=== PATIENT | female | born 1970 | race African-American/Black ===

== ENCOUNTER 2018-08-24 20:18 | Emergency (ER) | payer BC, OTHER ==
[2018-08-24 21:36] LABS: Absolute Lymphocytes (CBC) 2.5 K/uL (0.7-4.9); Absolute Monocytes 0.4 K/uL (0.1-1.3); Absolute Neutrophil 6.9 K/uL (1.8-8.0); Basophils % 0.7 % (0-1.3); Eosinophils % 2.3 % (0-4.4); Hematocrit 28.4 % (36.0-45.0); Lymphocytes % 25.1 % (15.3-44.8); MPV 8.8 fL (7.6-11.3); Monocytes % 4.3 % (3.3-12.3); RBC Red Blood Cell Count 4.11 M/uL (3.86-4.86)
[2018-08-24 21:39] LABS: Protime INR 1.15
[2018-08-24 21:54] LABS: ALT/SGPT 10 U/L (12-78); AST/SGOT 10 U/L (15-37); Albumin 2.8 g/dL (3.4-5.0); Alkaline Phosphatase 54 U/L (45-117); BUN Blood Urea Nitrogen 14 mg/dL (7-18); Bicarbonate 26 mmol/L (21-32); Bilirubin Direct < 0.1 mg/dL (0-0.2); Bilirubin Total 0.2 mg/dL (0.2-1.0); Glucose Level 109 mg/dL (74-106); NT PRO-BNP 40 pg/mL (<125); Potassium 3.7 mmol/L (3.5-5.1); Protein, Total 7.5 g/dL (6.4-8.2); Sodium Level 142 mmol/L (136-145); Troponin (Emerg Dept Use Only) < 0.02 ng/mL (0.0-0.045)
[2018-08-24] MEDS ORDERED: NA CHLORIDE 0.9% 1,000 ML ONE (21:54)
--- NOTE | 2018-08-24 22:49 | ER ---
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 This morning I woke up feeling weird in my head and woozy. Also having random sharp pains in my head. Transition of care: patient was not received from another setting of care. Onset of symptoms was August 24, 2018. Risk Assessment: Do you want to hurt yourself or someone else? Patient reports no desire to harm self or others. Initial Sepsis Screen: Does the patient meet any 2 criteria? No. Patient's initial sepsis screen is negative. Does the patient have a suspected source of infection? No. Patient's initial sepsis screen is negative. Care prior to arrival: None. 20:36 Method Of Arrival: Ambulatory tl2 20:36 Acuity: JAYME 3 tl2 Triage Assessment: 20:38 General: Appears in no apparent distress. uncomfortable, Behavior is calm, cooperative, tl2 appropriate for age. Pain: Complains of pain in left side of head Is intermittent. Neuro: Level of Consciousness is awake, alert, obeys commands, Oriented to person, place, time, situation. Cardiovascular: Denies chest pain. Respiratory: Airway is patent Respiratory effort is even, unlabored, Respiratory pattern is regular, symmetrical, Denies shortness of breath. GI: No signs and/or symptoms were reported involving the gastrointestinal system. : No signs and/or symptoms were reported regarding the genitourinary system. Derm: Skin is normal. 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 - Social history:: Smoking status: Patient/guardian denies using tobacco. - Ebola Screening: : No symptoms or risks identified at this time. - Family history:: not pertinent. Screenin:41 Abuse screen: Denies threats or abuse. Nutritional screening: No deficits noted. tl2 Tuberculosis screening: No symptoms or risk factors identified. Fall Risk None identified. Assessment: 20:38 General: see triage assessment. tl2 21:44 Reassessment: Patient appears in no apparent distress at this time. No changes from tl2 previously documented assessment. Patient and/or family updated on plan of care and expected duration. Pain level reassessed. Patient is alert, oriented x 3, equal unlabored respirations, skin warm/dry/pink. 22:44 Reassessment: Patient appears in no apparent distress at this time. Patient and/or tl2 family updated on plan of care and expected duration. Pain level reassessed. Patient is alert, oriented x 3, equal unlabored respirations, skin warm/dry/pink. 23:04 Reassessment: Patient appears in no apparent distress at this time. Patient and/or tl2 family updated on plan of care and expected duration. Pain level reassessed. Patient is alert, oriented x 3, equal unlabored respirations, skin warm/dry/pink. pt verbalized understanding of discharge instructions, need for follow up and prescription usage. Vital Signs: 20:38 BP 144 / 78; Pulse 102; Resp 18; Temp 98.3(O); Pulse Ox 100% on R/A; Weight 113.4 kg; tl2 Height 5 ft. 8 in. (172.72 cm); Pain 5/10; 21:44 BP 118 / 80; Pulse 83; Resp 18; Pulse Ox 100% on R/A; tl2 23:04 BP 129 / 90; Pulse 87; Resp 18; Pulse Ox 100% on R/A; tl2 20:38 Body Mass Index 38.01 (113.40 kg, 172.72 cm) tl2 ED Course: 20:21 Patient arrived in ED. am2 20:22 Raymon Tena MD is Private Physician. am2 20:35 Zoe Ayala RN is Primary Nurse. tl2 20:37 Triage completed. tl2 20:38 Arm band placed on right wrist. tl2 20:41 Patient has correct armband on for positive identification. Bed in low position. Call tl2 light in reach. Side rails up X 1. Adult w/ patient. 20:43 Deandre Rojas MD is Attending Physician. [facility] 21:18 Inserted saline lock: 20 gauge in right antecubital area, using aseptic technique. tl2 Blood collected. 21:44 XRAY Chest (1 view) In Process Unspecified. EDMS 22:15 CT completed. Patient tolerated procedure well. Patient moved to CT. Patient moved back ma from CT. 22:24 CT Head Brain wo Cont In Process Unspecified. EDMS 22:48 Raymon Tena MD is Referral Physician. [facility] 23:04 No provider procedures requiring assistance completed. IV discontinued, intact, tl2 bleeding controlled, No redness/swelling at site. Pressure dressing applied. Administered Medications: 21:44 Drug: NS 0.9% 500 ml Route: IV; Rate: bolus; Site: right antecubital; tl2 23:06 Follow up: IV Status: Completed infusion; IV Intake: 500ml tl2 Intake: 23:06 IV: 500ml; Total: 500ml. tl2 Outcome: 22:49 Discharge ordered by . [facility] 23:04 Discharged to home ambulatory, with family. tl2 23:04 Condition: stable 23:04 Discharge instructions given to patient, family, Instructed on discharge instructions, follow up and referral plans. medication usage, Demonstrated understanding of instructions, follow-up care, medications, Prescriptions given X 2. 23:14 Patient left the ED. tl2 Signatures: Dispatcher [employer] EDAZ Deandre Rojas MD MD cha Knox, Taylor, RN RN tl2 Darren Starks Amanda am2
--- NOTE | 2018-08-24 22:50 | EDPHYS ---
Physician Documentation [facility] Name: Ying Mendenhall Age: 48 yrs Sex: Female : 1970 Arrival Date: 08/24/2018 Time: 20:21 Bed 18 Private MD: Raymon Tena ED Physician Deandre Rojas HPI: 08/24 21:29 This 48 yrs old Black Female presents to ER via Ambulatory with complaints of Doesn't taylor Feel Right, Sharp body pains. 21:29 The patient complains of pain to the top of head, forehead, left frontal area, left taylor side of forehead and left temporal area. The patient describes the headache as aching. 21:30 Onset: The symptoms/episode began/occurred 2 day(s) ago. weak, no cp, no sob. taylor Associated signs and symptoms: The patient has no apparent associated signs or symptoms. Severity of symptoms: At its worst the pain was mild, moderate, in the emergency department the pain is unchanged. Headache History: The patient has had previous headaches and this one is similar to previous episodes. Onset: The symptoms/episode began/occurred 2 day(s) ago. The symptoms are alleviated by nothing. the symptoms are aggravated by nothing. 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 - Social history:: Smoking status: Patient/guardian denies using tobacco. - Ebola Screening: : No symptoms or risks identified at this time. - Family history:: not pertinent. ROS: 21:30 Constitutional: Negative for fever, chills, and weight loss, Eyes: Negative for injury, taylor pain, redness, and discharge, ENT: Negative for injury, pain, and discharge, Neck: Negative for injury, pain, and swelling, Cardiovascular: Negative for chest pain, palpitations, and edema, Respiratory: Negative for shortness of breath, cough, wheezing, and pleuritic chest pain, Abdomen/GI: Negative for abdominal pain, nausea, vomiting, diarrhea, and constipation, Back: Negative for injury and pain, : Negative for injury, bleeding, discharge, and swelling, MS/Extremity: Negative for injury and deformity, Skin: Negative for injury, rash, and discoloration, Psych: Negative for depression, anxiety, suicide ideation, homicidal ideation, and hallucinations, Allergy/Immunology: Negative for hives, rash, and allergies, Endocrine: Negative for neck swelling, polydipsia, polyuria, polyphagia, and marked weight changes, Hematologic/Lymphatic: Negative for swollen nodes, abnormal bleeding, and unusual bruising. 21:30 Neuro: Positive for headache, weakness. Exam: 21:30 Constitutional: This is a well developed, well nourished patient who is awake, alert, taylor and in no acute distress. Head/Face: Normocephalic, atraumatic. Eyes: Pupils equal round and reactive to light, extra-ocular motions intact. Lids and lashes normal. Conjunctiva and sclera are non-icteric and not injected. Cornea within normal limits. Periorbital areas with no swelling, redness, or edema. ENT: Nares patent. No nasal discharge, no septal abnormalities noted. Tympanic membranes are normal and external auditory canals are clear. Oropharynx with no redness, swelling, or masses, exudates, or evidence of obstruction, uvula midline. Mucous membranes moist. Neck: Trachea midline, no thyromegaly or masses palpated, and no cervical lymphadenopathy. Supple, full range of motion without nuchal rigidity, or vertebral point tenderness. No Meningismus. Chest/axilla: Normal chest wall appearance and motion. Nontender with no deformity. No lesions are appreciated. Cardiovascular: Regular rate and rhythm with a normal S1 and S2. No gallops, murmurs, or rubs. Normal PMI, no JVD. No pulse deficits. Respiratory: Lungs have equal breath sounds bilaterally, clear to auscultation and percussion. No rales, rhonchi or wheezes noted. No increased work of breathing, no retractions or nasal flaring. Abdomen/GI: Soft, non-tender, with normal bowel sounds. No distension or tympany. No guarding or rebound. No evidence of tenderness throughout. Back: No spinal tenderness. No costovertebral tenderness. Full range of motion. Skin: Warm, dry with normal turgor. Normal color with no rashes, no lesions, and no evidence of cellulitis. MS/ Extremity: Pulses equal, no cyanosis. Neurovascular intact. Full, normal range of motion. Neuro: Awake and alert, GCS 15, oriented to person, place, time, and situation. Cranial nerves II-XII grossly intact. Motor strength 5/5 in all extremities. Sensory grossly intact. Cerebellar exam normal. Normal gait. Psych: Awake, alert, with orientation to person, place and time. Behavior, mood, and affect are within normal limits. 22:52 Neck: ROM/movement: is normal, no acute changes, Meningeal signs: are not present, [facility] Kernig's sign is negative, Brudzinski's sign is negative. Vital Signs: 20:38 BP 144 / 78; Pulse 102; Resp 18; Temp 98.3(O); Pulse Ox 100% on R/A; Weight 113.4 kg; tl2 Height 5 ft. 8 in. (172.72 cm); Pain 5/10; 21:44 BP 118 / 80; Pulse 83; Resp 18; Pulse Ox 100% on R/A; tl2 23:04 BP 129 / 90; Pulse 87; Resp 18; Pulse Ox 100% on R/A; tl2 20:38 Body Mass Index 38.01 (113.40 kg, 172.72 cm) 2 MDM: 20:43 Patient medically screened. [facility] 21:31 Data reviewed: vital signs, nurses notes, lab test result(s), EKG, radiologic studies, [facility] CT scan, plain films. 08/24 21:22 Order name: Basic Metabolic Panel [place] 08/24 21:22 Order name: CBC with Diff [place] 08/24 21: Order name: LFT's; Complete Time: 22:47 [place] 08/24 21: Order name: Magnesium; Complete Time: 22:47 [place] 08/24 21:22 Order name: NT PRO-BNP; Complete Time: 22:47 [place] 08/24 21: Order name: PT-INR; Complete Time: 22:47 [place] 08/24 21:22 Order name: Troponin (emerg Dept Use Only); Complete Time: 22:47 [place] 08/24 21: Order name: XRAY Chest (1 view) tl2 08/24 21:22 Order name: EKG; Complete Time: 21:23 tl2 08/24 21:22 Order name: Cardiac monitoring; Complete Time: 21:38 tl2 08/24 21:23 Order name: Basic Metabolic Panel; Complete Time: 22:47 [facility] 08/24 21:27 Order name: CT Head Brain wo Cont [facility] 08/24 21:40 Order name: CBC Smear Scan [facility] 08/24 21:22 Order name: EKG - Nurse/Tech; Complete Time: 21:38 tl2 08/24 21:22 Order name: IV Saline Lock; Complete Time: 21:38 tl2 08/24 21:22 Order name: Labs collected and sent; Complete Time: 21:38 tl2 08/24 21:22 Order name: O2 Per Protocol; Complete Time: :38 tl2 08/24 21:22 Order name: O2 Sat Monitoring; Complete Time: :38 tl2 Administered Medications: 21:44 Drug: NS 0.9% 500 ml Route: IV; Rate: bolus; Site: right antecubital; tl2 23:06 Follow up: IV Status: Completed infusion; IV Intake: 500ml tl2 Disposition: 08/24/18 22:49 Discharged to Home. 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 - Condition is Stable. - Discharge Instructions: Iron Deficiency Anemia, Adult, Anemia, Nonspecific, Iron-Rich Diet, General Headache Without Cause, Weakness, Fatigue, Weakness, Curo-aa-Folf, Aspirin and Your Heart, General Headache Without Cause, Bcnk-od-Uqpn, Iron Deficiency Anemia, Adult, Xvml-bl-[id number]. - Prescriptions for Ferrous Sulfate 325 mg (65 mg Iron) Oral Tablet - take 1 tablet by ORAL route every 8 hours; 90 tablet. Pepcid 20 mg Oral Tablet - take 1 tablet by ORAL route every 12 hours for 10 days; 20 tablet. - Medication Reconciliation Form, Thank You Letter, Antibiotic Education, Prescription Opioid Use form. - Follow up: Raymon Tena; When: Tomorrow; Reason: Recheck today's complaints, Continuance of care, Re-evaluation by your physician. - Problem is new. - Symptoms have improved. Signatures: Dispatcher [employer] EDUT Deandre Rojas MD MD cha Knox, Taylor, RN RN tl2 Corrections: (The following items were deleted from the chart) 22:51 22:49 08/24/2018 22:49 Discharged to Home. Impression: Weakness; Malaise and fatigue; taylor Obesity, unspecified; Headache; Anemia, unspecified. Condition is Stable. Discharge Instructions: General Headache Without Cause, Weakness, Fatigue, Weakness, Qupt-eb-Hbwz, Aspirin and Your Heart, General Headache Without Cause, Gdpu-cp-Azxf. Forms are Medication Reconciliation Form, Thank You Letter, Antibiotic Education, Prescription Opioid Use. Follow up: Raymon Tena; When: Tomorrow; Reason: Recheck today's complaints, Continuance of care, Re-evaluation by your physician. Problem is new. Symptoms have improved. [facility] 23:06 21:27 Urine Dipstick-Ancillary ordered. taylor tl2 23:14 22:51 08/24/2018 22:49 Discharged to Home. 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 Condition is Stable. Discharge Instructions: General Headache Without Cause, Weakness, Fatigue, Weakness, Pzas-er-Pwbz, Aspirin and Your Heart, General Headache Without Cause, Ugpw-mu-Hzks, Iron Deficiency Anemia, Adult, Anemia, Nonspecific, Iron-Rich Diet, Iron Deficiency Anemia, Adult, Xqjr-hf-Qbkj. Forms are Medication Reconciliation Form, Thank You Letter, Antibiotic Education, Prescription Opioid Use. Follow up: Raymon Tena; When: Tomorrow; Reason: Recheck today's complaints, Continuance of care, Re-evaluation by your physician. Problem is new. Symptoms have improved. taylor
[2018-08-24 23:38] LABS: Blood Morphology Comment NOTED (NOT SEEN); Hypochromasia 1+; Platelet Estimate ADEQ; Urine White Blood Cell Casts OK
--- NOTE | 2018-08-25 08:02 | RAD REPORT ---
EXAM DESCRIPTION: RAD - Chest Single View - 08/24/2018 9:44 pm CLINICAL HISTORY: Shortness of breath COMPARISON: July 2016 TECHNIQUE: AP portable chest image was obtained 2141 hours . FINDINGS: Lungs are clear. Heart and vasculature are normal. No measurable pleural effusion and no p neumothorax. No acute bony abnormality seen. No acute aortic findings suspected. IMPRESSION: No acute cardiopulmonary process. No significant interval change.
--- NOTE | 2018-08-25 09:36 | RAD REPORT ---
EXAM DESCRIPTION: CT - Head Brain Wo Cont - 08/24/2018 10:46 pm CLINICAL HISTORY: 48 years Female DIZZINESS COMPARISON: None TECHNIQUE: Images were obtained in axial, sagittal, and coronal planes. This exam was performed according to our departmental dose-optimization program which includes use of Automated Exposure Control, adjustment of the mA and/or kV according to patient size and/or use of i terative reconstruction technique. FINDINGS: Ventricular system appears normal. No abnormal areas of increased increased attenuation are seen involving the brain parenchyma. No extr a-axial fluid collections noted. Left basal ganglionic calcifications likely physiologic in nature. O ld lacunar infarcts right basal ganglion region. No evidence for skull fracture. Symmetric aeration mastoid air cells bilaterally. Unremarkable parana courtney sinuses. Limited visualization craniovertebral junction on lateral images related to beam hardeni ng artifact. IMPRESSION: No acute intracranial abnormality. No evidence for hemorrhage, mass lesion, or large acu te infarction. Old lacunar infarct right basal ganglion region. Electronically signed by: Marta Alaniz MD 08/24/2018 10:33 PM CDT Due to temporary technical issues with the PACS/Fluency reporting system, reports are being signed by the in house radiologist as a courtesy to ensure prompt reporting. The interpreting radiologist is f ully responsible for the content of the report.
--- NOTE | 2018-08-25 10:29 | EKG ---
Test Date: 2018-08-24 Test Time: 21:36:10 Child Development Instructor: HIRO MEASUREMENT RESULTS: Intervals: Rate: 87 DE: 146 QRSD: 90 QT: 380 QTc: 457 [place]: P: 54 DE: 146 QRS: 1 T: 36 INTERPRETIVE STATEMENTS: Sinus rhythm with occasional premature ventricular complexes Moderate voltage criteria for LVH, may be normal variant Borderline ECG Compared to ECG 07/30/2016 20:32:02 Ventricular premature complex(es) now present Left ventricular hypertrophy now present Electronically Signed On 08-25-18 10:28:38 CDT by Zion Perez
== END 2018-08-24 23:14 | disposition home or self-care (01) ==
LOC: ER 20:18
DX: R51 Headache (principal); R53.1 Weakness; R53.81 Other malaise; R53.83 Other fatigue; E66.9 Obesity, unspecified; D64.9 Anemia, unspecified; I82.811 Embolism and thrombosis of superficial veins of right lower extremity
CPT/HCPCS: 36415; 70450; 71045; 80048; 80076; 83735; 83880; 84484; 85025; 85610; 93005; 96360; 99284; J7030

== ENCOUNTER 2018-12-28 17:20 | Emergency (ER) | payer OTHER ==
--- NOTE | 2018-12-28 19:27 | RAD REPORT ---
EXAM DESCRIPTION: US - UPPER EXTREMITY VENOUS UNILATE - 12/28/2018 7:10 pm CLINICAL HISTORY: Pain;Numbness/tingling Left arm swelling and pain COMPARISON: <Comparisons> FINDINGS: Left upper extremity venous system was interrogated with Doppler technique. Normal flow, c ompressibility and augmentation was noted. There is no DVT present. IMPRESSION: No evidence of left upper extremity deep venous thrombosis.
--- NOTE | 2018-12-28 19:48 | ER ---
Nurse's Notes [facility] Name: Ying Mendenhall Age: 48 yrs Sex: Female : 1970 Arrival Date: 12/28/2018 Time: 17:24 Bed 30 Private MD: Raymon Tena Diagnosis: Paresthesia of skin Presentation: 12/28 17:28 Presenting complaint: Patient states: left arm numbness since yesterday morning at work. Denies any injuries. States Dr Betancur told her to stop taking Eliquis in October 2018. Transition of care: patient was not received from another setting of care. Onset of symptoms was December 27, 2018. Risk Assessment: Do you want to hurt yourself or someone else? Patient reports no desire to harm self or others. Care prior to arrival: None. 17:28 Method Of Arrival: Ambulatory 17:28 Acuity: JAYME 3 sv 20:04 Initial Sepsis Screen: Does the patient meet any 2 criteria? No. Patient's initial aj1 sepsis screen is negative. Does the patient have a suspected source of infection? No. Patient's initial sepsis screen is negative. Triage Assessment: 17:28 General: Appears in no apparent distress. uncomfortable, obese, Behavior is calm, sv cooperative, appropriate for age. Neuro: Level of Consciousness is awake, alert, obeys commands, Oriented to person, place, time, situation, Moves all extremities. Full function Gait is steady, Speech is normal, Facial symmetry appears normal, Reports numbness in left arm. Respiratory: Airway is patent Respiratory effort is even, unlabored, Respiratory pattern is regular, symmetrical. Historical: - Allergies: 17:34 No Known Allergies; sv - PMHx: 17:34 DVT; Anemia; sv - PSHx: 17:34 Tubal ligation; sv - Immunization history:: Adult Immunizations up to date. - Social history:: The patient lives at home, Smoking status: unknown. - Ebola Screening: : Patient denies travel to an Ebola-affected area in the 21 days before illness onset. Screenin:51 Abuse screen: Denies threats or abuse. Denies injuries from another. Nutritional aj1 screening: No deficits noted. Tuberculosis screening: No symptoms or risk factors identified. 20:05 Fall Risk None identified. aj1 Assessment: 17:50 General: Appears in no apparent distress. comfortable, Behavior is calm, cooperative, aj1 appropriate for age. Pain: Denies pain. Neuro: Level of Consciousness is awake, alert, obeys commands, Oriented to person, place, time, situation. Neuro: Bilingual Branch Manager are equal bilaterally Moves all extremities. Full function Gait is steady, Speech is normal, Facial symmetry appears normal, Reports numbness in left arm. Cardiovascular: Patient's skin is warm and dry. Respiratory: Airway is patent Respiratory effort is even, unlabored, Respiratory pattern is regular, symmetrical. GI: No signs and/or symptoms were reported involving the gastrointestinal system. : No signs and/or symptoms were reported regarding the genitourinary system. EENT: No signs and/or symptoms were reported regarding the EENT system. Derm: No signs and/or symptoms reported regarding the dermatologic system. Skin is pink, warm \T\ dry. normal. Musculoskeletal: No signs and/or symptoms reported regarding the musculoskeletal system. Circulation, motion, and sensation intact. 18:50 Reassessment: Patient appears in no apparent distress at this time. No changes from aj1 previously documented assessment. Patient and/or family updated on plan of care and expected duration. Pain level reassessed. Patient is alert, oriented x 3, equal unlabored respirations, skin warm/dry/pink. 19:50 Reassessment: Patient appears in no apparent distress at this time. No changes from aj1 previously documented assessment. Patient and/or family updated on plan of care and expected duration. Pain level reassessed. Patient is alert, oriented x 3, equal unlabored respirations, skin warm/dry/pink. Vital Signs: 17:34 BP 136 / 85; Pulse 104; Resp 20; Pulse Ox 100% ; Weight 163.29 kg; Height 5 ft. 9 in. sv (175.26 cm); Pain 3/10; 19:45 BP 137 / 75; Pulse 92; Resp 18; Pulse Ox 99% ; aj1 17:34 Body Mass Index 53.16 (163.29 kg, 175.26 cm) sv ED Course: 17:24 Patient arrived in ED. mr 17:24 Raymon Tena MD is Private Physician. mr 17:34 Triage completed. sv 17:34 Arm band placed on. sv 17:41 Urmila Mendenhall RN is Primary Nurse. aj1 17:51 Patient has correct armband on for positive identification. Bed in low position. Call aj1 light in reach. Side rails up X 1. 17:51 No provider procedures requiring assistance completed. aj1 18:06 Alfred Yip MD is Attending Physician. 19:11 UPPER EXTREMITY VENOUS UNILATE In Process Unspecified. EDMS 20:04 Patient did not have IV access during this emergency room visit. aj1 Administered Medications: No medications were administered Outcome: 19:47 Discharge ordered by . gs 20:05 Discharged to home ambulatory. aj1 20:05 Condition: good 20:05 Discharge instructions given to patient, Instructed on discharge instructions, follow up and referral plans. Demonstrated understanding of instructions, follow-up care. 20:09 Patient left the ED. aj1 Signatures: Dispatcher [employer] Urmila Felix RN RN Nahed Hernandez RN RN Aide [place] mr Alfred Yip MD MD gs Corrections: (The following items were deleted from the chart) 17:35 17:28 Presenting complaint: Patient states: left arm numbness since yesterday morning sv at work. sv
--- NOTE | 2018-12-28 19:48 | EDPHYS ---
Physician Documentation [facility] Name: Ying Mendenhall Age: 48 yrs Sex: Female : 1970 Arrival Date: 12/28/2018 Time: 17:24 Bed 30 Private MD: Raymon Tena ED Physician Alfred Yip HPI: 12/28 19:39 This 48 yrs old Black Female presents to ER via Ambulatory with complaints of Numbness gs Of Arm. 19:40 This 48 yrs old Black Female presents to ER via Ambulatory with complaints of TINGLING gs LEFT UPPER EXTREMITY. 19:40 The patient presents to the emergency department with paresthesias of the left upper gs extremity, that is mild. Onset: The symptoms/episode began/occurred gradually, today. Context: occurred at home. Associated signs and symptoms: Pertinent negatives: altered mental status, chills, weakness. Severity of symptoms: At their worst the symptoms were moderate in the emergency department the symptoms have improved moderately. Current symptoms: Currently, the patient is not experiencing any symptoms. The patient has experienced similar episodes in the past, a few times. Historical: - Allergies: 17:34 No Known Allergies; sv - PMHx: 17:34 DVT; Anemia; sv - PSHx: 17:34 Tubal ligation; sv - Immunization history:: Adult Immunizations up to date. - Social history:: The patient lives at home, Smoking status: unknown. - Ebola Screening: : Patient denies travel to an Ebola-affected area in the 21 days before illness onset. ROS: 19:40 All other systems are negative. gs Exam: 19:40 Head/Face: Normocephalic, atraumatic. Eyes: Pupils equal round and reactive to light, gs extra-ocular motions intact. Lids and lashes normal. Conjunctiva and sclera are non-icteric and not injected. Cornea within normal limits. Periorbital areas with no swelling, redness, or edema. ENT: Nares patent. No nasal discharge, no septal abnormalities noted. Tympanic membranes are normal and external auditory canals are clear. Oropharynx with no redness, swelling, or masses, exudates, or evidence of obstruction, uvula midline. Mucous membranes moist. Neck: Trachea midline, no thyromegaly or masses palpated, and no cervical lymphadenopathy. Supple, full range of motion without nuchal rigidity, or vertebral point tenderness. No Meningismus. Chest/axilla: Normal chest wall appearance and motion. Nontender with no deformity. No lesions are appreciated. Cardiovascular: Regular rate and rhythm with a normal S1 and S2. No gallops, murmurs, or rubs. Normal PMI, no JVD. No pulse deficits. Respiratory: Lungs have equal breath sounds bilaterally, clear to auscultation and percussion. No rales, rhonchi or wheezes noted. No increased work of breathing, no retractions or nasal flaring. Abdomen/GI: Soft, non-tender, with normal bowel sounds. No distension or tympany. No guarding or rebound. No evidence of tenderness throughout. Back: No spinal tenderness. No costovertebral tenderness. Full range of motion. Skin: Warm, dry with normal turgor. Normal color with no rashes, no lesions, and no evidence of cellulitis. Neuro: Awake and alert, GCS 15, oriented to person, place, time, and situation. Cranial nerves II-XII grossly intact. Motor strength 5/5 in all extremities. Sensory grossly intact. Cerebellar exam normal. Normal gait. 19:40 Constitutional: The patient appears alert, awake. 19:40 Musculoskeletal/extremity: ROM: no acute changes, Pulses: are normal with no appreciated deficits. 19:40 Neuro: Sensation: is normal. 19:40 Neuro: Sensation: pin prick testing is normal. Vital Signs: 17:34 BP 136 / 85; Pulse 104; Resp 20; Pulse Ox 100% ; Weight 163.29 kg; Height 5 ft. 9 in. sv (175.26 cm); Pain 3/10; 19:45 BP 137 / 75; Pulse 92; Resp 18; Pulse Ox 99% ; aj1 17:34 Body Mass Index 53.16 (163.29 kg, 175.26 cm) sv MDM: 18:22 Patient medically screened. 19:40 Data reviewed: vital signs, nurses notes, radiologic studies. Counseling: I had a gs detailed discussion with the patient and/or guardian regarding: the historical points, exam findings, and any diagnostic results supporting the discharge/admit diagnosis. Counseling: I had a detailed discussion with the patient and/or guardian regarding: the presence of at least one elevated blood pressure reading (>120/80) during this emergency department visit. Response to treatment: the patient's symptoms have markedly improved after treatment, and as a result, I will discharge patient. Special discussion: I have referred the patient to see his PCP for further evaluation of high blood pressure. 12/28 18:53 Order name: UPPER EXTREMITY VENOUS UNILATE; Complete Time: 19:40 EDMS Administered Medications: No medications were administered Disposition: 12/28/18 19:47 Discharged to Home. Impression: Paresthesia of skin. - Condition is Stable. - Discharge Instructions: Paresthesia, [id number]. - Medication Reconciliation Form, Thank You Letter, Antibiotic Education, Prescription Opioid Use form. - Follow up: Private Physician; When: 2 - 3 days; Reason: Re-evaluation by your physician. Signatures: Dispatcher [employer] [facility] Urmila Mendenhall RN RN aj1 Nahed Hoang RN RN sv Alfred Yip MD MD gs Corrections: (The following items were deleted from the chart) 18:52 18:23 Extremity Venous [id number] ordered. [facility] EDCT 20:09 19:47 12/28/2018 19:47 Discharged to Home. Impression: Paresthesia of skin. Condition aj1 is Stable. Forms are Medication Reconciliation Form, Thank You Letter, Antibiotic Education, Prescription Opioid Use. Follow up: Private Physician; When: 2 - 3 days; Reason: Re-evaluation by your physician. gs
[2018-12-28 20:46] VITALS: BP 137/75; O2SAT 99
== END 2018-12-28 20:09 | disposition home or self-care (01) ==
LOC: ER 17:20
DX: R20.2 Paresthesia of skin (principal)
CPT/HCPCS: 93971; 99283

== ENCOUNTER 2025-01-13 12:41 | Emergency (ER) | payer BC ==
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
--- NOTE | 2025-01-13 13:26 | RAD REPORT ---
EXAMINATION: Spine Lumbar Wo Con CLINICAL INDICATION: Female, 54 years old. PAIN TECHNIQUE: Axial CT images were obtained through the lumbar spine in soft tissue and bone windows wit hout intravenous contrast. Coronal and Sagittal reformatted images were created from the data set. One or more of the following dose reduction techniques were used: Automated exposure control, adjustm ent of the mA and/ or kV according to patient size, and/or iterative reconstruction. Unless otherwise specified, incidental findings do not require dedicated imaging follow-up. [id number]. COMPARISON: No prior exams FINDINGS: For purposes of this dictation, it is assumed that there are 5 non rib-bearing lumbar type vertebrae, and the most caudal fully segmented lumbar vertebra is labeled L5. ALIGNMENT: The lumbar spine demonstrates normal alignment without scoliosis or spondylolisthesis. BONES: No significant soft tissue abnormalities. No aggressive osseous lesions. DEGENERATIVE: Facet degenerative changes are present bilaterally throughout the lumbar spine though w ith moderate to severe neural foraminal narrowing at L4-5 and L5-S1 bilaterally. The facet degenerative changes are most pronounced at L4-5 and L5-S1. There is at least moderate narrowing at L 3-4 bilaterally. Degenerative changes are present at bilateral SI joints with vacuum disc. There are also advanced degenerative changes at the sacroiliac joints with vacuum disc phenomenon. No high- grade central spinal stenosis. SOFT TISSUE: No soft tissue abnormalities. IMPRESSION: No acute lumbar spine abnormalities. Degenerative changes primarily involving the L4-5 and L5 facets and bilateral sacroiliac joints.
--- NOTE | 2025-01-13 13:41 | RAD REPORT ---
EXAMINATION: US BILATERAL LOWER EXTREMITY VENOUS DOPPLER CLINICAL INDICATION: PAIN TECHNIQUE: Complete bilateral duplex sonography of the BILATERAL lower extremity veins was performed. The examination included compression for vein patency, color Doppler imaging and flow augmentation in response to distal compression of the distal external iliac, common femoral, femoral, popliteal, t ibial, and great and small saphenous veins. COMPARISON: No prior exam. FINDINGS: Duplex sonography testing of the veins of the BILATERAL lower extremity was performed. Color flow obed ging shows all veins to be compressible with [id number] color filling. Pulsatile and phasic flow is present within all lower extremity deep and superficial veins examined. Thrombus is seen in the va ricose vein medial right calf region. IMPRESSION: There is no deep vein or superficial vein thrombosis. Thrombus in the medial calf varic ose vein.
[2025-01-13] MEDS ORDERED: KETOROLAC 30 MG/ML INJ ONE (14:02)
[2025-01-13] MEDS ORDERED: NA CHLORIDE 0.9% 1,000 ML ONE (14:02)
[2025-01-13] MEDS ORDERED: ONDANSETRON 4 MG/2 ML VIAL ONE (14:02)
[2025-01-13 14:07] LABS: Absolute Lymphocytes (CBC) 2.3 K/uL (0.7-4.9); Hematocrit 36.9 % (36.0-45.0); Hemoglobin 11.5 g/dL (12.0-15.0); MCH 25.6 pg (27.0-35.0); MCHC 31.2 g/dL (32.0-36.0); MCV 82.2 fL (80-100); MPV 9.7 fL (7.6-11.3); Nucleated RBC Absolute Count 0.0 (0-0); Nucleated Red Blood Cells % 0.0 % (0-0); RBC Red Blood Cell Count 4.49 M/uL (3.86-4.86); White Blood Count 8.10 thou/uL (4.3-10.9)
[2025-01-13 14:14] LABS: PT Prothrombin Time 13.3 SECONDS (10-13.0); Protime INR 1.18
[2025-01-13] MEDS ORDERED: MORPHINE 4 MG/ML SYR ONE (14:51)
[2025-01-13] MEDS ORDERED: DIAZEPAM 5 MG TABLET ONE (14:52)
[2025-01-13 15:19] LABS: Albumin 2.6 g/dL (3.4-5.0); Albumin/Globulin Ratio 0.6 (1.1-1.8); Alkaline Phosphatase 56 U/L (45-117); Anion Gap 10.0 mEq/L (5.0-15.0); BUN Blood Urea Nitrogen 18 mg/dL (7-18); Globulin 4.3 g/dL (2.3-3.5); Glucose Level 90 mg/dL (74-106); Potassium 4.0 mEq/L (3.5-5.1)
[2025-01-13 15:24] LABS: ALT/SGPT < 14 U/L (13-56); AST/SGOT < 10 U/L (15-37)
[2025-01-13 16:05] LABS: Sqamous Epithelial <5 /HPF (None Seen); Urine Culture Reflex Order NOT NEEDED; Urine Microscopic Reflex YN ORDER UMIC; Urine Yeast (Budding) Trace /HPF (None Seen)
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
--- NOTE | 2025-01-13 16:13 | ER ---
Nurse's Notes [facility] Name: Ying Arthur Age: 54 yrs Sex: Female : 1970 Arrival Date: 01/13/2025 Time: 12:41 Bed 7 Private MD: Diagnosis: Sciatica, right side;Varicose veins of right lower extremities with pain Presentation: 01/13 12:52 Chief complaint: Patient states: c/o pain to right lower back/buttock and radiates down iw the back of her right leg to her calf. Has been intermittent for about a month but has gotten worse. Pain 5/10 after taking ibuprofen this morning. Coronavirus screen: Vaccine status: Patient reports receiving the 2nd dose of the covid vaccine. Ebola Screen: No symptoms or risks identified at this time. Initial Sepsis Screen: Does the patient meet any 2 criteria? No. Patient's initial sepsis screen is negative. Does the patient have a suspected source of infection? No. Patient's initial sepsis screen is negative. Risk Assessment: Do you want to hurt yourself or someone else? Patient reports no desire to harm self or others. Onset of symptoms is unknown. 12:52 Method Of Arrival: Ambulatory iw 12:52 Acuity: JAYME 3 iw Triage Assessment: 12:54 General: Appears uncomfortable, obese, well groomed, well developed, Behavior is calm, iw cooperative, appropriate for age. Pain: Complains of pain in right gluteus armando Pain radiates to right hamstring, posterior aspect of right knee and right calf Pain currently is 5 out of 10 on a pain scale. Quality of pain is described as sharp, Pain began intermittently for about a month Is intermittent. EENT: No signs and/or symptoms were reported regarding the EENT system. Neuro: Level of Consciousness is awake, alert, obeys commands, Oriented to person, place, time, situation, Appropriate for age. Cardiovascular: Patient's skin is warm and dry. Respiratory: Airway is patent Respiratory effort is even, unlabored, Respiratory pattern is regular, symmetrical. Derm: Skin is intact, is healthy with good turgor, Skin is normal. Musculoskeletal: Reports pain in right gluteus armando, right hamstring, posterior aspect of right knee and right calf. 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 - Infectious Disease History:: Denies. - Social history:: Smoking status: Patient denies any tobacco usage or history of. - Family history:: not pertinent. Screenin:57 [facility] ED Fall Risk Assessment (Adult) History of falling in the last 3 months, ar8 including since admission No falls in past 3 months (0 pts). 13:57 [facility] ED Fall Risk Assessment (Adult) History of falling in the last 3 months, ar8 including since admission No falls in past 3 months (0 pts) Confusion or Disorientation No (0 pts) Intoxicated or Sedated No (0 pts) Impaired Gait No (0 pts) Mobility Assist Device Used No (0 pt) Altered Elimination No (0 pt) Score/Fall Risk Level 0 - 2 = Low Risk Oriented to surroundings, Maintained a safe environment. Abuse screen: Denies threats or abuse. Nutritional screening: No deficits noted. Tuberculosis screening: No symptoms or risk factors identified. Assessment: 13:57 General: Appears uncomfortable, Behavior is calm, cooperative. ar8 13:57 Pain: Complains of pain in right hip and right leg. Neuro: Level of Consciousness is ar8 awake, alert, obeys commands, Oriented to person, place, time, situation. Cardiovascular: Patient's skin is warm and dry. Respiratory: Airway is patent Respiratory effort is even, unlabored, Respiratory pattern is regular, symmetrical. GI: No signs and/or symptoms were reported involving the gastrointestinal system. : No signs and/or symptoms were reported regarding the genitourinary system. EENT: No signs and/or symptoms were reported regarding the EENT system. Derm: No signs and/or symptoms reported regarding the dermatologic system. Musculoskeletal: Reports pain in right hip and right leg Patient c/o intermittent pain that begins in her right hip and runs down her right leg. 15:45 Reassessment: Patient appears in no apparent distress at this time. Patient and/or iw family updated on plan of care and expected duration. Pain level reassessed. Patient is alert, oriented x 3, equal unlabored respirations, skin warm/dry/pink. Patient states feeling better. Patient states symptoms have improved. 16:30 Reassessment: Patient appears in no apparent distress at this time. Patient and/or db family updated on plan of care and expected duration. Pain level reassessed. Patient is alert, oriented x 3, equal unlabored respirations, skin warm/dry/pink. Patient states feeling better. Vital Signs: 12:52 BP 155 / 96; Pulse 70; Resp 18; Temp 98.2; Pulse Ox 100% ; Weight 174.63 kg; Height 5 iw ft. 9 in. ; Pain 5/10; 15:46 BP 123 / 74; Pulse 64; Resp 16; Pulse Ox 98% on R/A; iw 16:15 BP 152 / 86; Pulse 65; Resp 16; Pulse Ox 98% on R/A; db 16:30 BP 152 / 86; Pulse 68; Resp 18; Pulse Ox 100% on R/A; db 12:52 Body Mass Index 56.85 (174.63 kg, 175.26 cm) iw 12:52 Pain Scale: Adult iw ED Course: 12:46 Patient arrived in ED. cj3 12:54 Triage completed. iw 12:54 Arm band placed on Patient placed in an exam room. iw 12:59 Deandre Rojas MD is Attending Physician. taylor 13:14 CT Lumbar Spine Wo Con In Process Unspecified. EDMS 13:30 US Extremity Venous W Compression Saman In Process Unspecified. EDMS 13:43 John Paul Hogan, RN is Primary Nurse. ar8 13:57 Bed in low position. Call light in reach. Side rails up X2. Provided Education on: plan ar8 of care. Pulse ox on. NIBP on. 13:57 No provider procedures requiring assistance completed. Inserted saline lock: 20 gauge ar8 in left forearm, using aseptic technique. Blood collected. Flushed with 10 mL NS. 16:12 Hany Victor MD is Referral Physician. taylor 16:48 IV discontinued, intact, bleeding controlled, No redness/swelling at site. db Administered Medications: 13:02 CANCELLED (Duplicate Order): ondansetron 4 mg IVP once; over 2 minutes taylor 14:06 Drug: NS 0.9% IV 1000 ml IV at 1000 ml once; to be given as a bolus over 60 minutes ar8 Route: IV; Rate: 1000 ml; Site: left forearm; 16:53 Follow up: Response: No adverse reaction; IV Status: Completed infusion; IV Intake: db 1000ml 14:06 Drug: Ondansetron IVP 8 mg IVP once; over 2 minutes Route: IVP; Site: left forearm; ar8 14:56 Follow up: Response: No adverse reaction ar8 14:10 Drug: Ketorolac IVP 30 mg IVP once Route: IVP; Site: left forearm; ar8 16:53 Follow up: Response: No adverse reaction db 14:13 Drug: Decadron - Dexamethasone IVP 10 mg IVP once Route: IVP; Site: left forearm; ar8 16:53 Follow up: Response: No adverse reaction db 14:57 Drug: morphine IVP or IV 4 mg IVP once over 4 mins Route: IVP; Infused Over: 4 mins; ar8 Site: left forearm; 16:53 Follow up: Response: No adverse reaction db 14:57 Drug: Diazepam PO 10 mg PO once Route: PO; ar8 16:54 Follow up: Response: No adverse reaction db 16:25 Drug: Aspirin PO Chewable Tablet 81 mg PO once Route: PO; db 16:53 Follow up: Response: No adverse reaction db Medication: 13:57 VIS not applicable for this client. ar8 Intake: 16:53 IV: 1000ml; Total: 1000ml. db Outcome: 16:12 Discharge ordered by . taylor 16:48 Discharged to home ambulatory, db 16:48 Condition: stable 16:48 Discharge instructions given to patient, Instructed on discharge instructions, follow up and referral plans. Prescriptions given X 4, 16:50 Patient left the ED. iw Signatures: Dispatcher [employer] EDMS Deandre Rojas MD MD cha Williams, Irene, RN RN Ivone Davenport RN RN db Johnson, Celeste 3 John Paul Hogan RN RN ar8
[2025-01-13] MEDS ORDERED: ASPIRIN 81 MG CHEWABLE TABLET ONE (16:23)
[2025-01-13 17:27] VITALS: TEMP 98.2
[2025-01-13 17:28] VITALS: O2SAT 98
[2025-01-13 17:29] VITALS: BP 152/86
== END 2025-01-13 16:50 | disposition home or self-care (01) ==
LOC: ER 12:41
DX: M54.31 Sciatica, right side (principal); I83.811 Varicose veins of right lower extremity with pain; Z86.718 Personal history of other venous thrombosis and embolism
CPT/HCPCS: 96361; 85025; 81001; 36415; 85610; 80053; 72131; 93970; 96375; 96374; 99284; J1885; J1100; J2405; J7030